=== PATIENT | male | born 1955 | race African-American/Black ===

== ENCOUNTER 2018-06-30 19:01 | Inpatient (IN) | payer MEDICARE, MEDICAID ==
[~2018-06-30 19:01] MED LIST: ISOVUE-370 76%-LOCM 1 ML ONE
--- NOTE | 2018-06-30 19:57 | RAD ---
FRONTAL VIEW CHEST: 06/30/18 INDICATION: Altered mental status. FINDINGS: There are bilateral reticulonodular opacities in the lungs. The cardiac silhouette is prominent as is the pulmonary vasculature. No significant effusion is seen. IMPRESSION: 1. Bilateral reticulonodular opacities that may be on the basis of atypical infection. 2. These are superimposed upon edema from presumed decompensated CHF, given the associated enlar ged cardiac silhouette. Recommend continued imaging followup. POS: JANES
[2018-06-30 20:17] LABS: #Eosinphils 0.1 thou/uL (0.0-0.7); #Lymphocytes 0.9 thou/uL (1.20-3.40); %Basophils 0.2 % (0.0-1.0); %Eosinophils 0.6 % (0.0-10.0); %Lymphocytes 8.8 % (21.0-51.0); %Monocytes 9.8 % (0.0-10.0); %Neutrophils 80.7 % (42.0-75.0); Hemoglobin 14.1 g/dL (14.0-18.0); Mean Corpuscular HGB CONC 32.7 g/dL (32.0-36.0); Mean Corpuscular Hemoglobin 28.7 pg (27.0-31.0); Mean Corpuscular Volume 87.6 fL (78.0-98.0); Mean Platelet Volume 7.1 fL (7.4-10.4); Platelet Count 188 thou/uL (130-400); RBC Distribution Width 14.1 % (11.5-14.5); Red Blood Cell (RBC) Count 4.91 mill/uL (4.70-6.10); White Blood Cell (WBC) Count 9.9 thou/uL (4.8-10.8)
[2018-06-30 20:24] LABS: PTT 25.6 SEC (22.9-36.1); Prothrombin Time 13.7 SEC (12.0-14.7)
[2018-06-30 20:31] LABS: ALT (SGPT) 23 U/L (8-55); AST (SGOT) 21 U/L (5-34); Albumin 3.9 g/dL (3.4-4.8); Alkaline Phosphatase 57 U/L (40-150); Anion Gap 14 mmol/L (10-20); BUN (Urea Nitrogen) 14 mg/dL (8.4-25.7); Bilirubin, Total 0.4 mg/dL (0.2-1.2); Calc. Creatinine Clearance 0 mL/min (70-130); Calcium 9.9 mg/dL (7.8-10.44); Carbon Dioxide 29 mmol/L (23-31); Chloride 99 mmol/L (98-107); Estimated GFR-MDRD 76; Globulin 3.8 g/dL (2.4-3.5); Glucose 251 mg/dL (80-115); Protein, Total 7.7 g/dL (5.8-8.1); Sodium 138 mmol/L (136-145)
[2018-06-30 20:35] LABS: CKMB 1.5 ng/mL (0-6.6); Troponin I Less than 0.010 ng/mL (< 0.028)
--- NOTE | 2018-06-30 20:35 | CT ---
CT OF HEAD NONCONTRAST: 06/30/18 INDICATION: Stroke alert. 60-year-old male with unknown demographics. Brought to the hospital by EMS with report of sudden onset left side weakness. Upon referencing patient's status with the ordering physician, Roly Rivas, there is report that the patient does not reveal hemiparesis, but rather demonstrates symptoms of altered mental status. FINDINGS: There is parenchymal atrophy with compensatory dilatation of ventricular system. There are multifocal hypodensities of the brain parenchyma, most notable within the right kern radiata indicative of gl iosis from ischemic disease. No intracranial hemorrhage, mass effect or midline shift. IMPRESSION: There is no acute intracranial hemorrhage or mass effect. Parenchymal atrophy with compensatory dilatation of the ventricular system and multifocal areas of gl iosis related to ischemia. Telephone call of findings placed to ER physician, Johanna Rivas at 1908 hours, 06/30/18. Code CR POS: JANES
[2018-06-30] MEDS ORDERED: Piperacillin/Tazobactam 4.5 GM VIAL ONE (20:45)
[2018-06-30] MEDS ORDERED: Acetaminophen 500 MG TAB ONE ×2 (20:45→20:46)
--- NOTE | 2018-06-30 20:46 | CT ---
CTA HEAD WITH 3D VOLUME RENDERING WITH CONTRAST CTA NECK WITH CONTRAST WITH 3D VOLUME RENDERING 06/30/18 CLINICAL HISTORY: Stroke, new onset left sided weakness, altered mental status. FINDINGS: There is mild calcified plaque at the aortic arch. Mild calcification is seen at each subclavian. Mil d calcification is seen at each subclavian artery without high grade stenosis. There is a diminutive left vertebral artery throughout its course, and the proximal aspect of the vertebral artery is not w ell visualized although does arise from the left subclavian artery. This may relate to a diffuse ronaldo enital narrowing. There is moderate focal calcification involving origin of the right vertebral arter y, which is the dominant vertebral artery. Right vertebral artery is otherwise patent as is the basil ar artery. The right common carotid artery and cervical right ICA reveal no high grade stenosis or oc clusion. The left common carotid artery reveals calcified and noncalcified plaque with moderate steno sis of the mid to distal common carotid artery. At the level of the left carotid bifurcation, there i s prominent calcified plaque which results in severe stenosis approximate 90%. The subsequent cervica l left ICA does not reveal additional calcified plaque of significance. There is calcification at eac h carotid siphon. There is prominent plaque at the right carotid terminus without involvement of the origin of the righ t MCA. Left MCA is patent. Evaluation of each anterior cerebral artery reveals no obvious high grade stenosis or occlusion. Region of the anterior communicating artery is unremarkable. Bilateral MAINTENANCE [employer] WAY [employer] are small in caliber and grossly patent. IMPRESSION: Diffuse vascular disease, which is most pronounced within the left carotid artery involving the mid t o distal left common carotid artery with moderate stenosis and a severe at the origin of the cervical left ICA. There is incidental note of multifocal nodular opacity of the upper lung zones which may relate to an atypical infectious process. Given nodularity, component of underlying neoplasm cannot be excluded. Recommend appropriate clinical management and followup two view chest series to further assessment. Phone call of findings placed to ER physician, Johanna Rivas, at 1935 hours, 06/30/18. Code CR POS: JANES
[2018-06-30 23:51] VITALS: BMI 29.3
[2018-07-01 00:51] LABS: Troponin I 0.026 ng/mL (< 0.028)
[2018-07-01] MEDS ORDERED: Vancomycin HCl 1 GM in Premix Bag 1 BAG IVPB SCH (02:15)
[2018-07-01] MEDS ORDERED: Sodium Chloride 0.9% 1,000 ML IV SCH (02:45)
[2018-07-01] MEDS ORDERED: Promethazine HCl 12.5 MG SUPP PR PRN (03:04)
[2018-07-01] MEDS ORDERED: Loperamide HCl 2 MG CAP PO PRN (03:04)
[2018-07-01] MEDS ORDERED: Ondansetron ODT 4 MG TAB PO PRN (03:04)
[2018-07-01] MEDS ORDERED: Acetaminophen 325 MG TAB PO PRN ×2 (03:04→03:07)
[2018-07-01] MEDS ORDERED: Dextrose 5% in Water 1,000 ML IV PRN (03:33)
[2018-07-01] MEDS ORDERED: Dextrose 50% Abboject 50 ML SYRINGE SLOW IVP PRN (03:33)
[2018-07-01] MEDS ORDERED: Insulin Regular 300 UNITS/3 ML VIAL SC PRN (03:33)
[2018-07-01 03:51] LABS: #Lymphocytes 1.8 thou/uL (1.20-3.40); #Monocytes 1.2 thou/uL (0.11-0.59); #Neutrophils 7.5 thou/uL (1.40-6.50); %Basophils 0.1 % (0.0-1.0); %Eosinophils 0.4 % (0.0-10.0); %Lymphocytes 17.2 % (21.0-51.0); %Monocytes 11.2 % (0.0-10.0); Mean Corpuscular HGB CONC 32.5 g/dL (32.0-36.0); Mean Corpuscular Hemoglobin 28.6 pg (27.0-31.0); Mean Corpuscular Volume 88.2 fL (78.0-98.0); Mean Platelet Volume 7.7 fL (7.4-10.4); Platelet Count 154 thou/uL (130-400); RBC Distribution Width 13.9 % (11.5-14.5); Red Blood Cell (RBC) Count 4.21 mill/uL (4.70-6.10); White Blood Cell (WBC) Count 10.5 thou/uL (4.8-10.8)
[2018-07-01 04:04] LABS: Anion Gap 11 mmol/L (10-20); BUN (Urea Nitrogen) 13 mg/dL (8.4-25.7); Calc. Creatinine Clearance 111 mL/min (70-130); Carbon Dioxide 30 mmol/L (23-31); Chloride 102 mmol/L (98-107); Estimated GFR-MDRD 85; Glucose 374 mg/dL (80-115); Potassium 4.1 mmol/L (3.5-5.1); Sodium 139 mmol/L (136-145)
[2018-07-01 04:10] LABS: Troponin I 0.039 ng/mL (< 0.028)
[2018-07-01] MEDS ORDERED: Sodium Chloride 0.65% Nasal 44 ML BOT EA NARE PRN (08:09)
[2018-07-01] MEDS ORDERED: Artificial Tears 18 DROP/0.9 ML EA EYE PRN (08:09)
[2018-07-01] MEDS ORDERED: Loratadine 10 MG TAB PO PRN (08:09)
[2018-07-01] MEDS ORDERED: Ondansetron HCl/PF 4 MG/2 ML Vial IVP PRN (08:09)
[2018-07-01] MEDS ORDERED: hydrALAZINE 20 MG/ML VIAL SLOW IVP PRN (08:09)
[2018-07-01] MEDS ORDERED: Eucerin (Mineral Oil/Petrolatum,White) 30 gm Jar TOP PRN (08:09)
[2018-07-01] MEDS ORDERED: Chloraseptic Spray 180 ml Bottle PO PRN (08:09)
[2018-07-01] MEDS ORDERED: Mag-Al 1200 mg/1200 mg/30 ML UDCUP PO PRN (08:09)
[2018-07-01] MEDS ORDERED: Diabetic Tussin 200 MG/10 ML UDCUP PO PRN (08:09)
[2018-07-01] MEDS ORDERED: HumaLOG 300 UNITS/3 ML VIAL SC PRN (08:10)
[2018-07-01] MEDS: Ferrous Sulfate 325 MG TAB PO SCH ×2 (09:00→17:06)
[2018-07-01] MEDS: Famotidine 20 MG TAB PO SCH ×2 (09:00→20:43)
[2018-07-01] MEDS: Furosemide 20 MG TAB PO SCH (09:00)
[2018-07-01] MEDS: Enoxaparin Sodium 40 MG/0.4 ML SYRINGE SC SCH (09:00)
[2018-07-01] MEDS: Citalopram 20 MG TAB PO SCH (09:00)
[2018-07-01] MEDS: Pregabalin 50 MG CAP PO SCH ×2 (09:00→20:43)
[2018-07-01] MEDS: traMADol HCl 50 MG TAB PO SCH ×3 (09:01→20:45)
[2018-07-01] MEDS: Tamsulosin HCl 0.4 MG CAP PO SCH ×2 (09:01→20:45)
[2018-07-01] MEDS: Divalproex Sodium 250 MG (DR) TAB PO SCH ×2 (09:12→20:43)
--- NOTE | 2018-07-01 10:15 | PDOC.PN ---
- Subjective Encounter Start Date: 07/01/18 Encounter Start Time: 09:40 -: old records requested/rev this morning pt is on room air, he denies fever or cough, he is acting normal, no chest pain - Objective Resuscitation Status: Resuscitation Status FULL:Full Resuscitation MAR Reviewed: Yes Vital Signs & Weight: Vital Signs (12 hours) Temp Pulse Resp BP Pulse Ox 07/01/18 07:55 98 F 92 18 178/83 H 92 L 07/01/18 04:00 98.7 F 74 20 141/61 H 94 L 06/30/18 23:05 98.5 F 84 12 06/30/18 23:04 98.5 F 84 12 141/80 H 93 L Weight Weight 240 lb 14.4 oz I&O: 06/30/18 07/01/18 07/02/18 06:59 06:59 06:59 Intake Total 1328 Output Total 300 300 Balance 1028 -300 Result Diagrams: 07/01/18 03:30 07/01/18 03:30 Additional Labs: Accuchecks 07/01/18 06:17 POC Glucose 381 H Radiology Reviewed by me: Yes (CTA brain,neck, CT brain, Chest xray reviewed) EKG Reviewed by me: Yes (nsr) Phys Exam - Physical Examination Constitutional: NAD HEENT: PERRLA, moist MMs, sclera anicteric Neck: no JVD, supple Respiratory: no wheezing, no rales, no rhonchi Cardiovascular: RRR, no significant murmur, no rub Gastrointestinal: soft, non-tender, no distention, positive bowel sounds Musculoskeletal: no edema, pulses present Neurological: non-focal, normal sensation, moves all 4 limbs Psychiatric: normal affect, A&O x 3 Skin: no rash, normal turgor Dx/Plan (1) Community acquired bacterial pneumonia Code(s): J15.9 - UNSPECIFIED BACTERIAL PNEUMONIA Status: Acute (2) Demand ischemia Code(s): I24.8 - OTHER FORMS OF ACUTE ISCHEMIC HEART DISEASE Status: Acute (3) Encephalopathy acute Code(s): G93.40 - ENCEPHALOPATHY, UNSPECIFIED Status: Acute (4) Sepsis with acute organ dysfunction Code(s): A41.9 - SEPSIS, UNSPECIFIED ORGANISM; R65.20 - SEVERE SEPSIS WITHOUT SEPTIC SHOCK Status: Acute (5) Anxiety and depression Code(s): F41.9 - ANXIETY DISORDER, UNSPECIFIED; F32.9 - MAJOR DEPRESSIVE DISORDER, SINGLE EPISODE, UNSPECIFIED Status: Chronic (6) BPH (benign prostatic hyperplasia) Code(s): N40.0 - BENIGN PROSTATIC HYPERPLASIA WITHOUT LOWER URINRY TRACT SYMP Status: Chronic (7) Diabetes type 2, controlled Code(s): E11.9 - TYPE 2 DIABETES MELLITUS WITHOUT COMPLICATIONS Status: Chronic (8) Hypertension Code(s): I10 - ESSENTIAL (PRIMARY) HYPERTENSION Status: Chronic (9) Vascular dementia Code(s): F01.50 - VASCULAR DEMENTIA WITHOUT BEHAVIORAL DISTURBANCE Status: Chronic - Plan cont current plan of care, continue antibiotics * DC IVF * add rocephin * continue levaquin * pharmacy to dose vancomycin. * medication reviewed as below * symptomatic treatment * repeat labs tomorrow * check urine legionella and streptococal antigen * pt is advised that he will nee repeat imaging after trial of treatment with antibiotics * start PT * home medication reconciled Review of Systems - Review of Systems ENT: negative: Ear Pain, Ear Discharge, Nose Pain, Nose Discharge, Nose Congestion, Mouth Pain, Mouth Swelling, Throat Pain, Throat Swelling, Other Respiratory: negative: Cough, Dry, Shortness of Breath, Hemoptysis, SOB with Excertion, Pleuritic Pain, Sputum, Wheezing Cardiovascular: negative: chest pain, palpitations, orthopnea, paroxysmal nocturnal dyspnea, edema, light headedness, other Gastrointestinal: negative: Nausea, Vomiting, Abdominal Pain, Diarrhea, Constipation, Melena, Hematochezia, Other Genitourinary: negative: Dysuria, Frequency, Incontinence, Hematuria, Retention , Other Musculoskeletal: negative: Neck Pain, Shoulder Pain, Arm Pain, Back Pain, Hand Pain, Leg Pain, Foot Pain, Other Skin: negative: Rash, Lesions, Marco, Bruising, Other - Medications/Allergies Allergies/Adverse Reactions: Allergies Allergy/AdvReac Type Severity Reaction Status Date / Time No Known Drug Allergies Allergy Verified 07/01/18 00:06 Medications: Current Medications Acetaminophen (Tylenol) 325 mg PO Q4H PRN PRN Reason: Pain 1-3 Acetaminophen (Tylenol) 650 mg PO Q4H PRN PRN Reason: Headache/Fever or Pain Al Hydroxide/Mg Hydroxide (Maalox) 15 ml PO Q4H PRN PRN Reason: Heartburn or Indigestion Artificial Tears (Tears Naturale) 0 drop EA EYE PRN PRN PRN Reason: Dry Eyes Citalopram Hydrobromide (Celexa) 20 mg PO DAILY [facility] Last Admin: 07/01/18 09:00 Dose: 20 mg Dextrose/Water (Dextrose 50%) 25 gm SLOW IVP PRN PRN PRN Reason: Hypoglycemia Divalproex Sodium (Depakote) 250 mg PO BID [facility] Last Admin: 07/01/18 09:12 Dose: 250 mg Enoxaparin Sodium (Lovenox) 40 mg SC 09 [facility] Last Admin: 07/01/18 09:00 Dose: 40 mg Famotidine (Pepcid) 20 mg PO BID [facility] Last Admin: 07/01/18 09:00 Dose: 20 mg Ferrous Sulfate (Feosol) 325 mg PO BID[facility] Last Admin: 07/01/18 09:00 Dose: 325 mg Furosemide (Lasix) 20 mg PO DAILY [facility] Last Admin: 07/01/18 09:00 Dose: 20 mg Glucagon (Glucagon) 1 mg IM PRN PRN PRN Reason: Hypoglycemia Guaifenesin (Robitussin Sf) 200 mg PO Q4H PRN PRN Reason: Cough Hydralazine HCl (Apresoline) 10 mg SLOW IVP Q4H PRN PRN Reason: Systolic BP > 180 Sodium Chloride (Normal Saline 0.9%) 1,000 mls @ 100 mls/hr IV .Q10H [facility] Last Admin: 07/01/18 02:54 Dose: 1,000 mls Levofloxacin 750 mg/ Device 150 mls @ 100 mls/hr IVPB Q24HR [facility] Dextrose/Water (D5w) 1,000 mls @ 0 mls/hr IV .Q0M PRN PRN Reason: Hypoglycemia Insulin Human Lispro (Humalog) 0 units SC .MODERATE SLIDING SC PRN PRN Reason: Moderate Correctional Scale Insulin Human Lispro (Humalog) 0 units SC .BEDTIME SLIDING SC PRN PRN Reason: Bedtime Correctional Scale Loperamide HCl (Imodium) 2 mg PO Q8H PRN PRN Reason: Diarrhea/Loose Stools Loratadine (Claritin) 10 mg PO DAILYPRN PRN PRN Reason: Sinus Symptoms Mineral Oil/White Petrolatum (Eucerin Cream) 0 gm TOP BIDPRN PRN PRN Reason: Dry Skin Ondansetron HCl (Zofran Odt) 4 mg PO Q4H PRN PRN Reason: Nausea/Vomiting Ondansetron HCl (Zofran) 4 mg IVP Q6H PRN PRN Reason: Nausea/Vomiting Phenol (Chloraseptic [place] 180 Ml Bot) 0 ml PO PRN PRN PRN Reason: Sore Throat Pregabalin (Lyrica) 50 mg PO BID [facility] Last Admin: 07/01/18 09:00 Dose: 50 mg Promethazine HCl (Phenergan Suppository) 12.5 mg MS BID PRN PRN Reason: Nausea Quetiapine Fumarate (Seroquel) 100 mg PO TID [facility] Last Admin: 07/01/18 09:01 Dose: 100 mg Sodium Chloride ([place] Nasal [place] 0.65%) 0 ml EA NARE QIDPRN PRN PRN Reason: Nasal Congestion Tamsulosin HCl (Flomax) 0.4 mg PO BID [facility] Last Admin: 07/01/18 09:01 Dose: 0.4 mg Tramadol HCl (Ultram) 50 mg PO TID [facility] Last Admin: 07/01/18 09:01 Dose: 50 mg
--- NOTE | 2018-07-01 11:25 | HP ---
TIME OF EVALUATION: 11:40 p.m. PRIMARY CARE PHYSICIAN: Radha gr. CODE STATUS: FULL CODE. CHIEF COMPLAINT: The patient came in for evaluation of generalized weakness. HISTORY OF PRESENT ILLNESS: A 62-year-old male patient with past medical history of a stroke, hypert ension, BPH, hyperlipidemia, cardiomyopathy, dementia, type 2 diabetes, anemia. Patient came to the hospital, brought from detention after having generalized weakness. They reported that the they were concerned about possible stroke, and the symptoms were present for about 2 hours before com ing to the hospital. There is no report of any unilateral deficit, no slurred speech, patient seems confused during the interview. There are no clear triggers, no alleviating factors. He was found to have fever of 100.9 in the ER, and also CT head showing possible pneumonia in the upper lobes and al so the x-ray, the same findings. PAST MEDICAL HISTORY: He was mentioned in the HPI. PAST SURGICAL HISTORY: Surgery on both legs. PSYCHIATRIC HISTORY: Bipolar disorder, depression, dementia. KNOWN ALLERGIES: No known drug allergies. FAMILY HISTORY: Reviewed and noncontributory to current presentation. REPORTED MEDICATIONS: Cetirizine, ferrous sulfate, Phenergan, Depakote, Flomax, Seroquel, loperamide , Pepcid, Celexa, Zofran, Lyrica, Tylenol, tramadol, Lasix, metformin. PHYSICAL EXAMINATION: VITAL SIGNS: On presentation, blood pressure 160/113, heart rate 107, respiratory rate 18, oxygen sa turation 92 on room air. GENERAL APPEARANCE: Patient is alert, confused, in no any acute distress. HEENT: Eyes: Normal conjunctivae. Moist oral mucosa. Anicteric. NECK: No JVD. RESPIRATORY: Bilateral air entry. No rales, no wheezing. Symmetric expansion. CARDIOVASCULAR: Normal rate, regular rhythm. No murmurs, no gallop. No edema. ABDOMEN: Soft, normal bowel sounds. MUSCULOSKELETAL: Baseline range of motion and strength. No tenderness. Peripheral pulses are prese nt. Capillary refill seems to be intact. SKIN: Warm and intact. No pallor, no rash, no redness. NEUROLOGIC: Baseline sensorium. No evidence of any new focal weakness. Baseline speech. The patie nt is confused. Cranial nerve seems to be intact. PSYCHIATRIC: Unable to fully explore. No anxious. Good mood. IMAGING: EKG sinus tachycardia with ventricular rate 106, [place] 146, QRS 80, QT corrected 459, left ronny tricular hypertrophy with repolarization abnormality. Brain CT was done. There is no acute intracra nial hemorrhage or mass effect. CT angio diffuse vascular disease which is most pronounced within th e left carotid artery involving the [id number] left common carotid artery with moderate stenosis a nd severe at the region of the cervical left ICA. There is incidental multifocal nodular opacity of the upper lung zones, which may relate to atypical infectious process given underlying neoplasm cannot be excluded. Recommend appropriate clinical management and follow up. Two view chest series to further assessment. Chest x-ray was reviewed. It showed bilateral reticulonodular opacities susi t may be on the basis of atypical infection. These are superimposed pulmonary edema from presumed de compensated CHF given the associated enlarged cardiac silhouette. Recommend continue emergent follow up. LABORATORY DATA: Labs were reviewed. The patient has white count 9.9, hemoglobin 14, MCV 87, platel et count 188,000. PT 13, INR 1, PTT 25.6. Chemistry: Sodium 138, potassium 4, chloride 99, carbon dioxide 29, anion gap 14, BUN 14, creatinine 1.18, GFR 76, glucose 151. Lactic acid 1.9, calcium 9.9 . LFTs were normal with troponins negative x2 and valproic acid level was 17. ASSESSMENT AND PLAN: The patient will be placed in the hospital with following medical problems: 1. Atypical pneumonia as seen on a CAT scan and the chest x-ray. The patient has been started on an tibiotics that will continue for now. Follow cultures. Adjust treatment as needed. 2. Uncontrolled hypertension, systolic in the 160s on presentation. Reconcile home medications. Ad just treatment as needed. 3. Sepsis. The patient presented with a temperature of 101.5 and 100.9, heart rate 107, source is p neumonia. Treatment as above, antibiotics, IV fluids. Follow sepsis protocol. 4. Uncontrolled diabetes. Patient had blood sugar 251. 5. Hyperglycemia. Reconcile home medications. 6. Hyperlipidemia. Low-cholesterol diet is advised. Reconcile home medications. 7. Possible underlying acute encephalopathy, unclear what the baseline is. Has been reported the pa tosin has dementia, could be secondary to sepsis. We will monitor. We will treat underlying conditi on. 8. Deep vein thrombosis prophylaxis.
[2018-07-01] MEDS: cefTRIAXone\\ROCEPHIN 1 GM in Sodium Chloride 0.9% 100 ML IVPB SCH (12:39)
[2018-07-01] MEDS: Vancomycin HCl 1.75 GM in Sodium Chloride 0.9% 500 ML IVPB SCH (14:48)
[2018-07-01] MEDS: HumaLOG 300 UNITS/3 ML VIAL SC PRN (17:11)
[2018-07-02] MEDS: Vancomycin HCl 1.75 GM in Sodium Chloride 0.9% 500 ML IVPB SCH ×2 (02:27→15:35)
[2018-07-02] MEDS: Famotidine 20 MG TAB PO SCH (09:37)
[2018-07-02] MEDS: Citalopram 20 MG TAB PO SCH (09:38)
[2018-07-02] MEDS: Pregabalin 50 MG CAP PO SCH (09:38)
[2018-07-02] MEDS: Tamsulosin HCl 0.4 MG CAP PO SCH (09:38)
[2018-07-02] MEDS: Ferrous Sulfate 325 MG TAB PO SCH ×2 (09:38→16:57)
[2018-07-02] MEDS: Divalproex Sodium 250 MG (DR) TAB PO SCH (09:39)
[2018-07-02] MEDS: Furosemide 20 MG TAB PO SCH (09:39)
[2018-07-02] MEDS: traMADol HCl 50 MG TAB PO SCH ×2 (09:40→15:33)
[2018-07-02] MEDS: Enoxaparin Sodium 40 MG/0.4 ML SYRINGE SC SCH (09:41)
[2018-07-02] MEDS: HumaLOG 300 UNITS/3 ML VIAL SC PRN ×3 (09:45→17:01)
[2018-07-02] MEDS: cefTRIAXone\\ROCEPHIN 1 GM in Sodium Chloride 0.9% 100 ML IVPB SCH ×2 (11:13→11:14)
[2018-07-02 15:52] LABS: Vancomycin, Trough 15.9 ug/mL
[2018-07-02 17:09] VITALS: TEMP 97.8
[2018-07-02 18:00] VITALS: BP 175/73
--- NOTE | 2018-07-02 20:44 | DIS ---
DATE OF ADMISSION: 06/30/2018 DATE OF DISCHARGE: 07/02/2018 DISCHARGE DIAGNOSES: 1. Toxic-metabolic encephalopathy, multifactorial, resolving. 2. Acute bacterial pneumonia, suspected, stable. 3. Anxiety/depression. 4. Diabetes mellitus type 2, stable. 5. Hypertension, labile. CONSULTATIONS: None. PERTINENT LAB AND X-RAY FINDINGS: Creatinine ranged between 1.07 to 1.18. Estimated GFR ranged betw een 76 to 85. Lactic acid level 1.9. LFTs within normal limits. Troponin I ranged between 0.010 to 0.039. CBC showed a white blood cell count ranged between 9.9 to 10.5. Valproic acid level 70.2. Blood cultures x2 dated 06/30/2018 showed no growth at [address] of the brain without contrast da shai 06/30/2018 showed no acute intracranial process. CT angiogram of the head and neck dated 018 showed diffuse vascular disease in the left carotid artery with moderate stenosis. HOSPITAL COURSE: The patient was admitted to the telemetry unit after initially presenting with gene ralized weakness and altered mental status. The patient was initially evaluated after a concern for possible CVA or TIA, undergoing CT imaging of the brain. No acute intracranial process was identifie d and the patient was diagnosed with atypical-type pneumonia, likely bacterial origin. The patient w as placed on broad-spectrum IV antibiotic therapy and given general pulmonary supportive care. The p atient was also noted with labile hypertension. Initiated on metoprolol 12.5 mg b.i.d. The patient may need additional titration of his blood pressure regimen on an ongoing basis after discharge. The patient clinically stabilized with return to baseline mental status function by the time of discharg e. Likely multifactorial encephalopathy without acute intracranial process. I have examined the pat ient at the time of discharge and discussed followup instructions with the patient. The patient verb alized understanding and agreement. Ready for discharge back to [facility] on 07/02/2018. DISCHARGE MEDICATIONS: 1. Metoprolol 12.5 mg 1 tab p.o. b.i.d. 2. Celexa 20 mg p.o. daily. 3. Depakote 250 mg p.o. b.i.d. 4. Pepcid 20 mg p.o. b.i.d. 5. Ferrous sulfate 325 mg p.o. b.i.d. 6. Lasix 20 mg p.o. daily. 7. Metformin 500 mg p.o. b.i.d. 8. Lyrica 50 mg p.o. b.i.d. 9. Seroquel 100 mg p.o. t.i.d. 10. Flomax 0.4 mg p.o. b.i.d. 11. Tramadol 50 mg p.o. t.i.d. p.r.n. 12. Levaquin 500 mg p.o. daily x5 days. FOLLOWUP: The patient may follow up with his primary care provider, Dr. Kris Benavidez, at [facility]. CONDITION ON DISCHARGE: Fair. ACTIVITY: Ad ghazal. DIET: ADA. CODE STATUS: Full. DISPOSITION: Discharged to [facility], where the patient is a current resident. Total time preparing and coordinating discharge, 32 minutes.
--- NOTE | 2018-07-10 16:37 | EKG ---
Test Reason : STROKE ALERT Blood Pressure : / mmHG Vent. Rate : 106 BPM Atrial Rate : 106 BPM P-R Int : 146 ms QRS Dur : 080 ms QT Int : 346 ms P-R-T Axes : 051 -26 107 degrees QTc Int : 459 ms Sinus tachycardia Left ventricular hypertrophy with repolarization abnormality Abnormal ECG Confirmed by DIANA MUKHERJEE ([id number]), news videotape editor TYRA RODRIGUEZ ([id number]) on 07/10/2018 4:36:54 PM Referred By: Confirmed By:DIANA MUKHERJEE
--- NOTE | 2018-07-16 08:58 | PQF ---
CAROLINA GREENLADAN DO [id number] CLINICAL DOCUMENTATION CLARIFICATION FORM: POST DISCHARGE Please exercise your independent, professional judgment in responding to the clarification form. Clinical indicators are provided on the bottom of this form for your review. Thank you. Please check appropriate box(s) to clarify if the following diagnosis has been ruled in or ruled out: Sepsis (CDI/Coding list diagnosis here) [ ] Ruled in diagnosis [ ] Continue to treat [ ] Resolved [ ] Ruled out diagnosis [ ] Cannot rule out diagnosis [ ] Other diagnosis [ ] Unable to determine In addition, please specify: Present on Admission (POA): [ ] Yes [ ] No [ ] Unable to determine For continuity of documentation, please document condition throughout progress notes and discharge summary. Thank You. CLINICAL INDICATORS - SIGNS / SYMPTOMS / LABS Sepsis documented Progress Note 07/01/2018, ER Admit order Temp - 101.5, R 22, P 102 Emergency Flow sheet Record 06/30/18 RISK FACTORS - atypical pneumonia - HP 07/01/18, encephalopathy - PN TREATMENTS - Levofloxacin IV 750mg - PN 07/01/18 (This form is maintained as a part of the permanent medical record) 2014 [employer]. All Rights Reserved Karlee Clark, CCS, ULTRASOUND TECH, CASC [email or web address] [phone] MTDD
== END 2018-07-02 19:04 | DRG 193 ==
LOC: ERS 19:01 → EDBD 19:01 → 2NO 21:27 → IMCU/EMU 07-02 02:42 → 2NO 07-02 02:47
PROVIDERS: ADMIT Hospitalist; ATTEND Hospitalist
DX: J15.9 Unspecified bacterial pneumonia (principal); G92 Toxic encephalopathy; I42.9 Cardiomyopathy, unspecified; I24.8 Other forms of acute ischemic heart disease; I10 Essential (primary) hypertension; N40.0 Benign prostatic hyperplasia without lower urinary tract symptoms; E11.65 Type 2 diabetes mellitus with hyperglycemia; E78.5 Hyperlipidemia, unspecified; D64.9 Anemia, unspecified; F41.9 Anxiety disorder, unspecified; F32.9 Major depressive disorder, single episode, unspecified; F01.50 Vascular dementia, unspecified severity, without behavioral disturbance, psychotic disturbance, mood disturbance, and anxiety; Z86.73 Personal history of transient ischemic attack (TIA), and cerebral infarction without residual deficits; Z79.84 Long term (current) use of oral hypoglycemic drugs
CPT/HCPCS: 36415; 36416; 70450; 70496; 70498; 71045; 80048; 80053; 80164; 80202; 82553; 83605; 84484; 85025; 85610; 85730; 87040; 93005; 96365; 96367; A4216; G8978-GP-CL; G8979-GP-CK; J0360; J0696; J1650; J1815; J1956; J2543; J3370; J7050